=== PATIENT | female | born 1985 | race Caucasian/White ===

== ENCOUNTER 2017-02-09 09:12 | Outpatient (CLI) | payer OTHER ==
[2017-02-09 18:10] LABS: BASOPHILS % (AUTO) 0.8 %; EOSINOPHILS # (AUTO) 0.1 10^3/uL (0.0-0.7); EOSINOPHILS % (AUTO) 1.5 %; HGB - HEMOGLOBIN 14.1 g/dL (12.0-16.0); LYMPHOCYTES # (AUTO) 2.4 10^3/uL (1.5-3.5); LYMPHOCYTES % (AUTO) 43.4 %; MEAN CORPUSCULAR HEMOGLOBIN 28.1 pg (27.0-31.0); MEAN CORPUSCULAR HGB CONC 32.9 g/dL (32.0-36.0); MEAN CORPUSCULAR VOLUME 85.6 fL (81.0-99.0); MEAN PLATELET VOLUME 8.8 fL (7.9-10.8); MONOCYTES # (AUTO) 0.2 10^3/uL (0.0-1.0); MONOCYTES % (AUTO) 4.2 %; NEUTROPHILS # (AUTO) 2.7 10^3/uL (1.5-6.6); NEUTROPHILS % (AUTO) 50.1 %; NUCLEATED RED BLOOD CELLS AUTO 0.1 /100WBC; RED BLOOD COUNT 5.02 10^6/uL (4.20-5.40); RED CELL DISTRIBUTION WIDTH 12.5 % (12.0-15.0); UNCORRECTED WHITE BLOOD COUNT 5.4 x10^3/uL; WHITE BLOOD COUNT 5.4 x10^3/uL (4.8-10.8)
[2017-02-09 18:27] LABS: ALBUMIN/GLOBULIN RATIO 1.3 (1.0-2.2); BILIRUBIN,TOTAL 0.9 mg/dL (0.2-1.0); CALCIUM 9.3 mg/dL (8.5-10.3); CREATININE 0.9 mg/dL (0.4-1.0); POTASSIUM 4.2 mmol/L (3.5-5.0); TOTAL PROTEIN 7.8 g/dL (6.7-8.2)
[2017-02-09 18:59] LABS: THYROID STIMULATING HORMONE 2.01 uIU/mL (0.34-5.60)
== END 2017-02-09 09:13 | disposition home or self-care (01) ==
LOC: LAB.F 09:12
PROVIDERS: ATTEND Family Medicine
DX: R53.83 Other fatigue (principal)
CPT/HCPCS: 36415; 80053; 82306; 82607; 82746; 84439; 84443; 84481; 85025

== ENCOUNTER 2017-08-13 10:56 | Emergency (ER) | payer OTHER ==
[2017-08-13] MEDS ORDERED: METOCLOPRAMIDE 10 MG/2 ML VIAL IVP STA (11:13)
[2017-08-13] MEDS ORDERED: SODIUM CHLORIDE 0.9% 1,000 ML IV ONE (11:13)
--- NOTE | 2017-08-13 11:16 | ED Physician Documentation ---
History of Present Illness - Stated complaint Stated Complaint: DEHYDRATED/DIZZY/6WKS PREG - Chief complaint Chief Complaint: General - Additonal information Additional information: hx from pt 32 f approx 6 weeks EGA 5 days of metallic taste in her mouth like she is chewing on a dorothy with nausea and upper abd pain/burning causing ot to be diff for her to even drink water no pelvic pain ctx bleeding etc Review of Systems Constitutional: denies: Fever Throat: denies: Oral lesions / sores, Sore throat Cardiac: denies: Chest pain / pressure GI: reports: Abdominal Pain, Nausea, Vomiting. denies: Diarrhea : reports: Now EGA. denies: Discharge, Vaginal bleeding Endocrine: denies: Easy bruising / bleeding Immunocompromised: denies: Immunocompromised PD PAST MEDICAL HISTORY - Present Medications Home Medications: Ambulatory Orders Medication Instructions Recorded Confirmed Cholecalciferol (Vitamin D3) 2,000 units PO BID 08/13/17 08/13/17 [Vitamin D3] Pnv No.122/Iron/Folic Acid 122 mg PO DAILY 08/13/17 08/13/17 [ Multi Tablet] Pyridoxine HCl [Vitamin B-6] 25 mg PO Q8H PRN #10 tablet 08/13/17 buPROPion [Wellbutrin Sr] 150 mg PO DAILY 08/13/17 08/13/17 raNITIdine [Zantac] 150 mg PO BID #30 tablet 08/13/17 - Allergies Allergies/Adverse Reactions: Allergies Allergy/AdvReac Type Severity Reaction Status Date / Time oxycodone AdvReac Intermediate Unknown Verified 08/13/17 11:04 PD ED PE NORMAL - Vitals Vital signs reviewed: Yes - General General: Alert and oriented X 3 - HEENT HEENT: Pharynx benign, Dentition benign, Other (no oral lesions) - Cardiac Cardiac: RRR - Respiratory Respiratory: No respiratory distress, Clear bilaterally - Abdomen Abdomen: Soft, Non tender, Other (neg murphys) - Derm Derm: Normal color - Neuro Neuro: Alert and oriented X 3 Results - Vitals Vitals: Vital Signs - 24 hr 08/13/17 08/13/17 08/13/17 11:00 11:33 11:42 Temperature 36.4 C L 37.1 C 37.0 C Heart Rate 87 79 88 Respiratory 18 18 18 Rate Blood Pressure 147/104 H 126/79 135/80 H O2 Saturation 87 L 100 100 Oxygen O2 Source Room air - Labs Labs: Laboratory Tests 08/13/17 08/13/17 08/13/17 11:24 11:24 11:51 WBC 8.5 RBC 4.68 Hgb 13.5 Hct 39.3 MCV 84.0 MCH 28.8 MCHC 34.3 RDW 12.5 Plt Count 215 MPV 7.6 L Neut # 6.1 Lymph # 1.9 [place] # 0.4 Eos # 0.0 Baso # 0.0 Absolute Nucleated RBC 0.01 Nucleated RBC % 0.1 Sodium 135 Potassium 3.6 Chloride 100 L Carbon Dioxide 26 Anion Gap 9.0 BUN 10 Creatinine 0.7 Estimated GFR (MDRD) 98 Glucose 103 H Calcium 9.2 Total Bilirubin 0.8 AST 19 ALT 15 Alkaline Phosphatase 21 L Total Protein 7.6 Albumin 4.3 Globulin 3.3 Albumin/Globulin Ratio 1.3 Lipase 28 Urine Color DARK YELLOW Urine Clarity CLEAR Urine pH 6.5 Ur Specific [place] 1.015 Urine Protein NEGATIVE Urine Glucose (UA) NEGATIVE Urine Ketones NEGATIVE Urine Occult Blood NEGATIVE Urine Nitrite NEGATIVE Urine Bilirubin NEGATIVE Urine Urobilinogen 0.2 (NORMAL) Ur Leukocyte Esterase NEGATIVE Ur Microscopic Review NOT INDICATED Urine Culture Comments NOT INDICATED Serum Ketones NEGATIVE PD MEDICAL DECISION MAKING - ED course ED course: first VS documented are not accurate - not for this pt better after meds sx could be morning sickness GERD related to preg ddx for metallic taste in mouth is extensive and beyond scope of ER to fully work up ddx Departure - Departure Disposition: 01 Home, Self Care Clinical Impression: Dehydration, Morning sickness GERD (gastroesophageal reflux disease) Qualifiers: Esophagitis presence: esophagitis presence not specified Qualified Code(s): K21.9 - Gastro-esophageal reflux disease without esophagitis Condition: Good Instructions: ED GERD, ED Dehydration, ED Preg Morning Sickness Prescriptions: Pyridoxine HCl [Vitamin B-6] 25 mg PO Q8H PRN #10 tablet PRN Reason: vomiting in raNITIdine [Zantac] 150 mg PO BID #30 tablet Comments: Do not take your wellbutrin while taking medication for morning sickness - they interact - wellbutrin is category C in so you probably should not be taken at all while you are - please discuss with your OB i did prescribe vitamin B6 to be taken as needed for vomiting as well as zantac for acid reflux - both are safe in The metallic taste in your mouth could be from acid reflux - there are many many other disease processes that can cause this symptoms but that is beyond the scope of an ER visit to work up - please follow up with your PMD or OB if the symptoms persist
[2017-08-13 11:29] LABS: BASOPHILS % (AUTO) 0.3 %; EOSINOPHILS % (AUTO) 0.4 %; HGB - HEMOGLOBIN 13.5 g/dL (12.0-16.0); LYMPHOCYTES # (AUTO) 1.9 10^3/uL (1.5-3.5); LYMPHOCYTES % (AUTO) 22.4 %; MEAN CORPUSCULAR HEMOGLOBIN 28.8 pg (27.0-31.0); MEAN CORPUSCULAR HGB CONC 34.3 g/dL (32.0-36.0); MEAN PLATELET VOLUME 7.6 fL (7.9-10.8); MONOCYTES # (AUTO) 0.4 10^3/uL (0.0-1.0); MONOCYTES % (AUTO) 4.3 %; NEUTROPHILS # (AUTO) 6.1 10^3/uL (1.5-6.6); NEUTROPHILS % (AUTO) 72.6 %; PLT - PLATELET COUNT 215 10^3/uL (130-450); RED BLOOD COUNT 4.68 10^6/uL (4.20-5.40); RED CELL DISTRIBUTION WIDTH 12.5 % (12.0-15.0); WHITE BLOOD COUNT 8.5 x10^3/uL (4.8-10.8)
[2017-08-13] MEDS ORDERED: FAMOTIDINE 20 MG/50 ML 50 ML IV ONE (11:30)
[2017-08-13 11:44] LABS: ALBUMIN 4.3 g/dL (3.2-5.5); ALBUMIN/GLOBULIN RATIO 1.3 (1.0-2.2); ALKALINE PHOSPHATASE 21 IU/L (42-121); ALT ALANINE AMINOTRANSFERASE 15 IU/L (10-60); AST ASPARTATE AMINOTRANSFERASE 19 IU/L (10-42); BILIRUBIN,TOTAL 0.8 mg/dL (0.2-1.0); BUN - BLOOD UREA NITROGEN 10 mg/dL (6-20); CALCIUM 9.2 mg/dL (8.5-10.3); CARBON DIOXIDE - CO2 26 mmol/L (21-32); CHLORIDE 100 mmol/L (101-111); CREATININE 0.7 mg/dL (0.4-1.0); GFR - MDRD 98 (>89); GLUCOSE 103 mg/dL (70-100); LIPASE 28 U/L (22-51); SODIUM 135 mmol/L (135-145); TOTAL PROTEIN 7.6 g/dL (6.7-8.2)
[2017-08-13 11:49] LABS: KETONES, SERUM (ACETEST) NEGATIVE (NEGATIVE)
[2017-08-13 12:46] LABS: BILIRUBIN,URINE NEGATIVE (NEGATIVE); GLUCOSE, URINE (UA) NEGATIVE (NEGATIVE); KETONES,URINE (UA) NEGATIVE (NEGATIVE); LEUKOCYTE ESTERASE, URINE NEGATIVE (NEGATIVE); NITRITE,URINE NEGATIVE (NEGATIVE); OCCULT BLOOD,URINE NEGATIVE (NEGATIVE); PH,URINE 6.5 PH (5.0-7.5); PROTEIN,URINE NEGATIVE (NEGATIVE); UROBILINOGEN,URINE 0.2 (NORMAL) E.U./dL (NORMAL)
[2017-08-13 12:49] LABS: CLARITY,URINE CLEAR (CLEAR)
[2017-08-13 14:54] VITALS: BP 138/92
== END 2017-08-13 15:02 | disposition home or self-care (01) ==
LOC: ED 10:56
DX: O99.611 Diseases of the digestive system complicating pregnancy, first trimester (principal); O21.1 Hyperemesis gravidarum with metabolic disturbance; Z3A.01 Less than 8 weeks gestation of pregnancy
CPT/HCPCS: 36415; 80053; 81001; 81003; 82009; 83690; 85025; 87086; 96365; 96375; 99283; 99284

== ENCOUNTER 2017-11-21 02:45 | Outpatient (CLI) | payer OTHER ==
[2017-11-21 03:08] VITALS: BP 130/66
[2017-11-21 03:17] LABS: BILIRUBIN,URINE NEGATIVE (NEGATIVE); GLUCOSE, URINE (UA) NEGATIVE (NEGATIVE); KETONES,URINE (UA) NEGATIVE (NEGATIVE); LEUKOCYTE ESTERASE, URINE NEGATIVE (NEGATIVE); NITRITE,URINE NEGATIVE (NEGATIVE); OCCULT BLOOD,URINE NEGATIVE (NEGATIVE); PROTEIN,URINE NEGATIVE (NEGATIVE); UROBILINOGEN,URINE 0.2 (NORMAL) E.U./dL (NORMAL)
[2017-11-21 03:27] LABS: CLARITY,URINE CLEAR (CLEAR)
== END 2017-11-21 03:50 | disposition home or self-care (01) ==
LOC: WFO 02:45 → FBP 02:47 → WFO 03:50
PROVIDERS: ATTEND Obstetrics & Gynecology
DX: O26.892 Other specified pregnancy related conditions, second trimester (principal); R10.9 Unspecified abdominal pain; Z3A.21 21 weeks gestation of pregnancy
CPT/HCPCS: 81001; 81003; 87086; 99213

== ENCOUNTER 2017-11-21 03:58 | Emergency (ER) | payer OTHER ==
[2017-11-21] MEDS ORDERED: MAG HYDROX/AL HYDROX/SIMETH 30 ML UDC PO STA (04:20)
--- NOTE | 2017-11-21 05:01 | ED Physician Documentation ---
PD HPI ABD PAIN - Stated complaint Stated Complaint: ABD PX - Chief complaint Chief Complaint: Abd Pain - History obtained from History obtained from: Patient - History of Present Illness Timing - onset: How many days ago (2) Timing - details: Gradual onset, Still present Quality: Aching, Sharp Location: Epigastric Worsened by: Eating, Palpation Associated symptoms: No: Fever, Nausea, Vomiting, Diarrhea, Constipation Similar symptoms before: Work up / diagnostics, Treatment Recently seen: Not recently seen - Additional information Additional information: Patient is a 32 year old female approximately 20 weeks by dates who is presenting to the emergency department for epigastric pain. Patient originally went to OB by was cleared by them before being sent to the ER. Patient states that it has been going on for the last few days. Patient read online and was worried it might be her appendix or cancer. (patient does not have a gallbladder). Review of Systems Constitutional: denies: Fever, Chills Eyes: reports: Reviewed and negative Ears: reports: Reviewed and negative Nose: reports: Reviewed and negative Throat: reports: Reviewed and negative Cardiac: denies: Chest pain / pressure, Palpitations Respiratory: denies: Dyspnea, Cough GI: reports: Abdominal Pain, Nausea. denies: Vomiting, Constipation, Diarrhea : denies: Dysuria, Frequency, Discharge, Vaginal bleeding Musculoskeletal: denies: Back pain Neurologic: denies: Generalized weakness, Focal weakness, Numbness Immunocompromised: denies: Immunocompromised PD PAST MEDICAL HISTORY - Past Medical History Past Medical History: Yes GI: Other Other Past Medical History: Positive H. 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 - Present Medications Home Medications: Ambulatory Orders Medication Instructions Recorded Confirmed Sucralfate [Carafate] 1 gm PO BID #300 ml 11/21/17 - Allergies Allergies/Adverse Reactions: Allergies Allergy/AdvReac Type Severity Reaction Status Date / Time oxycodone AdvReac Intermediate Unknown Verified 11/21/17 04:24 - Social History Does the pt smoke?: No Smoking Status: Never smoker Does the pt drink ETOH?: Yes Does the pt have substance abuse?: No - Immunizations Immunizations are current?: Yes - POLST Patient has POLST: No PD ED PE NORMAL - Vitals Vital signs reviewed: Yes - General General: Alert and oriented X 3, Well developed/nourished - HEENT HEENT: Atraumatic, Moist mucous membranes - Neck Neck: Supple, no meningeal sign - Cardiac Cardiac: RRR, No murmur - Respiratory Respiratory: No respiratory distress - Abdomen Abdomen: Soft - Derm Derm: Normal color, Warm and dry - Extremities Extremities: No deformity - Neuro Neuro: Alert and oriented X 3, No motor deficit, Normal speech Eye Opening: Spontaneous PD ED PE EXPANDED - General General: Alert, Anxious - Abdomen Abdomen: Tender to palpation, Epigastric. No: Rebound, Guarding Results - Vitals Vitals: Vital Signs - 24 hr 11/21/17 11/21/17 04:05 05:10 Temperature 37.1 C Heart Rate 81 77 Respiratory 19 16 Rate Blood Pressure 133/82 H 112/70 O2 Saturation 100 100 Oxygen O2 Source Room air PD MEDICAL DECISION MAKING - ED course Complexity details: reviewed old records, reviewed results, re-evaluated patient , considered differential, d/w patient ED course: Patient was seen and examined at bedside. patient was anxious but well appearing. A discussion was had with the patient about possible causes of abdominal pain and and in this situation GERD was the most likely scenario. Patient was treated with maalox. Pre-eclampsia was considered but patient was not hypertensive nor did she have proteinuria . Patient had no pelvic pain or vaginal bleeding. Patient was offered labs and further diagnostics but stated that she felt better after the maalox and talking. She stated she would try the gastiris recommendations and follow up with her doctor. Patient required no further testing at this time and was stable for discharge with outpatient follow up. Departure - Departure Disposition: 01 Home, Self Care Clinical Impression: Acid reflux disease Condition: Good Instructions: Antacids Follow-Up: primary,care provider [Other] - Within 3 Days Prescriptions: Sucralfate [Carafate] 1 gm PO BID #300 ml Comments: Your symptoms today are likely secondary to GERD. It is common in . You should start with diet modifications including smaller meals, less spicey, acidic or fatty foods. You should no eat then lie down. You can try sucralfate twice a day, and maalox as needed. If your symptoms persist you should follow up with your doctor for further care and urea breath test to check for h. pylori. You should return to the emergency department for high blood pressure, abdominal pain, dizziness, new worsening or uncontrollable symptoms. Discharge Date/Time: 11/21/17 05:15
[2017-11-21 05:17] VITALS: BP 112/70
== END 2017-11-21 05:15 | disposition home or self-care (01) ==
LOC: ED 03:58
DX: O99.612 Diseases of the digestive system complicating pregnancy, second trimester (principal); K21.9 Gastro-esophageal reflux disease without esophagitis; Z3A.20 20 weeks gestation of pregnancy
CPT/HCPCS: 81003; 99213; 99283; A9270; 81001; 87086

== ENCOUNTER 2018-05-26 11:52 | Outpatient (CLI) | payer OTHER ==
[2018-05-26 17:20] LABS: BASOPHILS % (AUTO) 0.7 %; EOSINOPHILS # (AUTO) 0.3 10^3/uL (0.0-0.7); EOSINOPHILS % (AUTO) 5.9 %; HGB - HEMOGLOBIN 13.6 g/dL (12.0-16.0); LYMPHOCYTES # (AUTO) 1.9 10^3/uL (1.5-3.5); LYMPHOCYTES % (AUTO) 35.5 %; MEAN CORPUSCULAR HEMOGLOBIN 28.1 pg (27.0-31.0); MEAN CORPUSCULAR VOLUME 85.2 fL (81.0-99.0); MEAN PLATELET VOLUME 7.9 fL (7.9-10.8); MONOCYTES # (AUTO) 0.3 10^3/uL (0.0-1.0); MONOCYTES % (AUTO) 5.4 %; NEUTROPHILS # (AUTO) 2.8 10^3/uL (1.5-6.6); NEUTROPHILS % (AUTO) 52.5 %; PLT - PLATELET COUNT 208 10^3/uL (130-450); RED BLOOD COUNT 4.84 10^6/uL (4.20-5.40); RED CELL DISTRIBUTION WIDTH 12.4 % (12.0-15.0); WHITE BLOOD COUNT 5.3 x10^3/uL (4.8-10.8)
[2018-05-26 18:04] LABS: ALBUMIN 4.3 g/dL (3.2-5.5); ALBUMIN/GLOBULIN RATIO 1.3 (1.0-2.2); BILIRUBIN,TOTAL 0.6 mg/dL (0.2-1.0); CALCIUM 9.3 mg/dL (8.5-10.3); CREATININE 0.9 mg/dL (0.4-1.0); TOTAL PROTEIN 7.5 g/dL (6.7-8.2)
== END 2018-05-26 11:53 | disposition home or self-care (01) ==
LOC: LAB.F 11:52
PROVIDERS: ATTEND Family Medicine
DX: R10.13 Epigastric pain (principal)
CPT/HCPCS: 36415; 80053; 85025

== ENCOUNTER 2018-05-27 12:11 | Emergency (ER) | payer OTHER ==
[2018-05-27 12:59] LABS: GLUCOSE, URINE (UA) NEGATIVE (NEGATIVE); KETONES,URINE (UA) 40 mg/dL (NEGATIVE); LEUKOCYTE ESTERASE, URINE NEGATIVE (NEGATIVE); NITRITE,URINE NEGATIVE (NEGATIVE); OCCULT BLOOD,URINE TRACE-INTA (NEGATIVE); PROTEIN,URINE NEGATIVE (NEGATIVE); UROBILINOGEN,URINE 0.2 (NORMAL) E.U./dL (NORMAL)
[2018-05-27 13:06] LABS: BILIRUBIN,URINE NEGATIVE (NEGATIVE); CLARITY,URINE CLEAR (CLEAR); ICTOTEST,URINE NEGATIVE
[2018-05-27 13:15] LABS: HCG UR QUAL NEGATIVE
--- NOTE | 2018-05-27 14:27 | ED Physician Documentation ---
PD HPI ABD PAIN - Stated complaint Stated Complaint: ABD PX - Chief complaint Chief Complaint: Abd Pain - History obtained from History obtained from: Patient - History of Present Illness Timing - onset: How many days ago (several days of uper abd pain, worse with eating.) Timing - duration: Days Timing - details: Gradual onset, Still present, Intermittant Quality: Cramping, Aching, Pain Location: Epigastric Radiation: Upper back Improved by: No: Eating Worsened by: Eating Associated symptoms: Nausea, Loss of appetite. No: Fever, Vomiting, Diarrhea, Melena, Weight loss Similar symptoms before: Diagnosis (h.pylori related ulcer years ago. no recent problems. Prior CCY. No history of pancreatitis.) Recently seen: Clinic (she is 8 weeks post .) Review of Systems Constitutional: denies: Fever, Chills, Myalgias Nose: denies: Rhinorrhea / runny nose, Congestion Throat: denies: Sore throat Respiratory: denies: Cough GI: reports: Abdominal Pain, Nausea. denies: Abdominal Swelling, Vomiting, Constipation, Diarrhea, Bloody / black stool : denies: Dysuria, Frequency Skin: denies: Rash Musculoskeletal: reports: Back pain. denies: Neck pain Neurologic: reports: Generalized weakness. 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 - Present Medications Home Medications: Ambulatory Orders Medication Instructions Recorded Confirmed Sucralfate [Carafate] 1 gm PO BID #300 ml 11/21/17 HYDROcod/ACETAM 5/325 [[place] 5/325] 1 tab PO Q6H PRN #15 tablet 05/27/18 Lidocaine Viscous 2% [Xylocaine 5 ml PO Q4H PRN #1 bottle 05/27/18 Viscous 2%] Pantoprazole [Protonix] 05/27/18 05/27/18 Sucralfate 1 gm PO QID #40 tablet 05/27/18 - Allergies Allergies/Adverse Reactions: Allergies Allergy/AdvReac Type Severity Reaction Status Date / Time oxycodone AdvReac Intermediate Unknown Verified 11/21/17 04:24 - Social History Does the pt smoke?: No Smoking Status: Never smoker Does the pt drink ETOH?: Yes Does the pt have substance abuse?: No - Immunizations Immunizations are current?: Yes - POLST Patient has POLST: No PD ED PE NORMAL - Vitals Vital signs reviewed: Yes - General General: Alert and oriented X 3, Well developed/nourished, Other (anxious, and does seem in pain from upper abd. ) - HEENT HEENT: Ears normal, Pharynx benign - Neck Neck: Supple, no meningeal sign, No adenopathy - Cardiac Cardiac: RRR, No murmur - Respiratory Respiratory: Clear bilaterally - Abdomen Abdomen: Normal bowel sounds, Soft, Non distended, No organomegaly, Other (tender epigastric area with local guarding. No rebound. Lower abd c-sec wound well healing. ) - Female Female : Deferred - Rectal Rectal: Deferred - Back Back: No CVA TTP - Derm Derm: Normal color, Warm and dry - Extremities Extremities: No tenderness to palpate, Normal ROM s pain, No edema, No calf tenderness / cord - Neuro Neuro: Alert and oriented X 3, No motor deficit, Normal speech - Psych Psych: No: Normal affect (anxious and concerned/tearful about concern for cancer or other tumors. ) Results - Vitals Vitals: Vital Signs - 24 hr 05/27/18 05/27/18 05/27/18 12:16 16:26 18:23 Temperature 36.4 C L Heart Rate 88 84 75 Respiratory 20 14 12 Rate Blood Pressure 151/91 H 148/88 H 132/78 H O2 Saturation 100 100 98 Oxygen O2 Source Room air - Labs Labs: Laboratory Tests 05/27/18 05/27/18 12:25 12:25 Urine Color DARK YELLOW Urine Clarity CLEAR Urine pH 6.0 Ur Specific [place] >=1.030 H >=1.030 H Urine Protein NEGATIVE Urine Glucose (UA) NEGATIVE Urine Ketones 40 H Urine Occult Blood TRACE-INTA Urine Nitrite NEGATIVE Urine Bilirubin NEGATIVE Urine Urobilinogen 0.2 (NORMAL) Ur Leukocyte Esterase NEGATIVE Ur Microscopic Review NOT INDICATED Urine Culture Comments NOT INDICATED Urine HCG, Qual NEGATIVE - Rads (name of study) RUQ U/S Radiology: Prelim report reviewed (CBD is normal. No free fluid. Liver mass noted.) abd CT Radiology: Prelim report reviewed (No acute findings. Liver mass noted with hypodensity and irregular edging c/w hemangioma. ) PD MEDICAL DECISION MAKING - ED course Complexity details: re-evaluated patient (She was feeling improved with GI cocktail. Her common bile duct appeared normal on ultrasound. There was a question of a mass in the liver on ultrasound and a CT was done which showed a likely hemangioma. There is no indication of neoplastic mass. Her blood tests are normal. At this point I would presume a gastritis or ulcer in treated that way. She had been prescribed pantoprazole and we would add sucralfate, viscous lidocaine, Zofran and pain medicine. She was feeling improved at the time of discharge.), considered differential (Sounds likely to be gastritis or ulcer. She has had a previous gallbladder resection. We will check labs.), d/w patient Departure - Departure Disposition: Home, Self Care Clinical Impression: Upper abdominal pain, Hemangioma of liver Gastritis, acute Qualifiers: Gastritis type: unspecified gastritis Gastritis bleeding: without bleeding Qualified Code(s): K29.00 - Acute gastritis without bleeding Condition: Stable Record reviewed to determine appropriate education?: Yes Instructions: ED PUD Vs Gastritis Follow-Up: Marissa Medrano PA-C [Primary Care Provider] - Prescriptions: HYDROcod/ACETAM 5/325 [[place] 5/325] 1 tab PO Q6H PRN #15 tablet PRN Reason: Pain Lidocaine Viscous 2% [Xylocaine Viscous 2%] 5 ml PO Q4H PRN #1 bottle PRN Reason: Pain Sucralfate 1 gm PO QID #40 tablet Comments: The CT scan shows the liver mass to be apparently a hemangioma which is a collection of blood vessels in a localized area. This is a benign finding. There is no signs of cancer or tumors. I believe your stomach pain is related to an ulcer or gastritis. Continue the pantoprazole previously prescribed. Use sucralfate 3 or 4 times a day as well to coat the stomach. Add lidocaine with antacid periodically if needed for stomach pain and can also use Tylenol or hydrocodone if needed for pain. Follow-up with your primary care next week, call for an appointment. With your follow-up, also bring a stool sample in a specimen cup so they can send it to the lab and test for recurrent H. pylori. Discharge Date/Time: 05/27/18 18:24
[2018-05-27] MEDS ORDERED: ACETAMINOPHEN 325 MG TABLET PO STA (14:47)
[2018-05-27] MEDS ORDERED: LIDOCAINE VISCOUS 2% 15 ML UDC MM STA (14:47)
[2018-05-27] MEDS ORDERED: MAG HYDROX/AL HYDROX/SIMETH 30 ML UDC PO STA (14:47)
--- NOTE | 2018-05-27 16:42 | Ultrasound Report ---
Reason: upper abd pain; s/p CCY. eval CBD Procedure Date: 05/27/2018 Accession Number: [id number] / [id number] Procedure: US - Abdomen Limited CPT Code: FULL RESULT: EXAM: ABDOMEN ULTRASOUND LIMITED, RUQ EXAM DATE: 05/27/2018 03:43 PM. CLINICAL HISTORY: Upper abd pain; s/p CCY. Eval CBD. COMPARISON: None available. TECHNIQUE: Real-time scanning was performed with static images obtained. FINDINGS: Liver: There is a focal subcapsular mass in the left hepatic lobe that is mildly hyperechoic compared to the normal liver parenchyma. This mass measures 3.5 x 3.8 x 2.8 cm. No significant internal vascularity on color Doppler. 13.7 cm. Main portal vein flow: Hepatopetal. Gallbladder: Surgically absent. Biliary System: CBD measures 5 mm. No intrahepatic or extrahepatic ductal dilatation. Other: The right kidney is unremarkable. IMPRESSION: Focal subcapsular mass in the left hepatic lobe, which is hyperechoic relative to the normal liver parenchyma. Differential considerations include focal nodular hyperplasia, adenoma, or less likely malignancy. This can be further evaluated with liver protocol contrast-enhanced Eovist MRI. [facility]
[2018-05-27] MEDS ORDERED: IOPAMIDOL-300 100 ML VIAL ONE (17:11)
[2018-05-27] MEDS ORDERED: IOPAMIDOL-300 100 ML VIAL IVP ONE (17:32)
--- NOTE | 2018-05-27 17:53 | CT Report ---
Reason: liver mass seen on US Procedure Date: 05/27/2018 Accession Number: [id number] / [id number] Procedure: CT - Abdomen/Pelvis W/ CPT Code: FULL RESULT: EXAM: CT ABDOMEN AND PELVIS EXAM DATE: 05/27/2018 05:28 PM. CLINICAL HISTORY: Liver mass seen on US. COMPARISONS: None. TECHNIQUE: Routine helical CT imaging was performed through the abdomen and pelvis. IV contrast: ISOVUE 300 100mL. Enteric contrast: No. Reconstructions: Coronal and sagittal. In accordance with CT protocol optimization, one or more of the following dose reduction techniques were utilized for this exam: automated exposure control, adjustment of mA and/or KV based on patient size, or use of iterative reconstructive technique. FINDINGS: Lung Bases: Unremarkable. Liver: Again seen is the subcapsular mass in the left hepatic lobe, which measures 2.9 x [address] This mass is hypodense relative to the adjacent liver parenchyma and may demonstrate nodular discontinuous peripheral enhancement. Two additional hypodense lesions are seen in the left hepatic dome with the largest measuring 9-10 mm, which may represent cysts or hemangiomas. No intrahepatic bile duct dilation. Gallbladder/Bile Ducts: The gallbladder is surgically absent. Spleen: Normal. Pancreas: Normal. Adrenal Glands: Normal. Kidneys: No hydronephrosis. Nonobstructing 4 mm stone in the lower pole of the left kidney. Symmetric renal perfusion. Peritoneal Cavity/Bowel: Nonobstructive bowel gas pattern. Small to moderate volume stool. The appendix is normal. No free air or free fluid. Pelvic Organs: Normal. The bladder and visualized pelvic organs are within normal limits. Vasculature: No aneurysms or other significant abnormality. Bones: No significant abnormality. Other: None. IMPRESSION: Redemonstrated subcapsular mass in the left hepatic lobe. Imaging features on this single phase CT suggest a hemangioma given peripheral nodular discontinuous enhancement. However, given that the patient was focally tender at this location, further evaluation with outpatient Eovist liver MRI is still recommended for definitive characterization. Nonobstructing left renal nephrolithiasis. RADIA The above findings were discussed with Cancel Call Report Please by Dr. Papo Alfredo at 17:51 hrs on 05/27/18.
[2018-05-27 18:24] VITALS: BP 132/78
== END 2018-05-27 18:24 | disposition home or self-care (01) ==
LOC: ED 12:11
DX: K29.00 Acute gastritis without bleeding (principal); D18.09 Hemangioma of other sites
CPT/HCPCS: 74177; 76705; 81001; 81003; 81025; 87086; 87338; 99283

== ENCOUNTER 2018-05-27 23:35 | Emergency (ER) | payer OTHER ==
[2018-05-27 23:48] VITALS: BP 131/76
--- NOTE | 2018-05-28 00:38 | ED Physician Documentation ---
History of Present Illness - Stated complaint Stated Complaint: UPPER LT BACK PX - Chief complaint Chief Complaint: General - History obtained from History obtained from: Patient - History of Present Illness Timing: Today Pain level now: 3 Improved by: nothing Worsened by: no exacerbating factors - Additonal information Additional information: T+R earlier this afternoon from this ED after w/u for abd. pain; testing included abd. US and abd. CT, with nondiagnostic results. seen by PMD yesterday and had outpatient blood work that also yielded unrevealing results. she returns due to the pain now radiating to left chest, left shoulder, and left side of neck as well as to mid/lower back. she did not take the lidocaine nor hydrocodone, as she did not want to mask the pain. she expresses concern regarding family h/o cardiac problems Review of Systems Constitutional: reports: Reviewed and negative Cardiac: reports: Chest pain / pressure. denies: Palpitations, Pedal edema Respiratory: reports: Reviewed and negative GI: reports: Abdominal Pain. 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: No Smoking Status: Never smoker Does the pt drink ETOH?: Yes Does the pt have substance abuse?: No - Immunizations Immunizations are current?: Yes - POLST Patient has POLST: No PD ED PE NORMAL - Vitals Vital signs reviewed: Yes - General General: Alert and oriented X 3, No acute distress, Well developed/nourished - HEENT HEENT: Moist mucous membranes - Neck Neck: Supple, no meningeal sign - Cardiac Cardiac: RRR, No murmur, No gallop, No rub - Respiratory Respiratory: No respiratory distress, Clear bilaterally - Abdomen Abdomen: Soft, Non tender - Extremities Extremities: No edema Results - Vitals Vitals: Vital Signs - 24 hr 05/27/18 23:42 Temperature 36.5 C Heart Rate 78 Respiratory 16 Rate Blood Pressure 131/76 H O2 Saturation 100 Oxygen O2 Source Room air - EKG (time done) No standard instances Rate: Rate (enter#) (78) Rhythm: NSR [place]: Normal Intervals: Normal NC QRS: Normal Ischemia: Normal ST segments - Rads (name of study) chest xray Radiology: Prelim report reviewed, See rad report PD MEDICAL DECISION MAKING - ED course Complexity details: reviewed results, re-evaluated patient, considered differential, d/w patient Departure - Departure Disposition: 01 Home, Self Care Clinical Impression: Gastritis, acute, Back pain Condition: Good Instructions: ED PUD Vs Gastritis Follow-Up: Marissa Medrano PA-C [Primary Care Provider] - Discharge Date/Time: 05/28/18 03:45
--- NOTE | 2018-05-28 01:37 | XRAY Report ---
Reason: chest pain Procedure Date: 05/28/2018 Accession Number: [id number] / [id number] Procedure: XR - Chest 2 View X-Ray CPT Code: 30149 FULL RESULT: EXAM: CHEST RADIOGRAPHY EXAM DATE: 05/28/2018 01:12 AM. CLINICAL HISTORY: Chest pain. COMPARISON: None. TECHNIQUE: 2 views. FINDINGS: Lungs/Pleura: No focal opacities evident. No pleural effusion. No pneumothorax. Normal volumes. Mediastinum: Heart and mediastinal contours are unremarkable. Other: None. IMPRESSION: Normal 2-view chest radiography. [facility]
[2018-05-28] MEDS ORDERED: LIDOCAINE VISCOUS 2% 15 ML UDC MM STA (02:32)
[2018-05-28] MEDS ORDERED: MAG HYDROX/AL HYDROX/SIMETH 30 ML UDC PO STA (02:32)
== END 2018-05-28 03:45 | disposition home or self-care (01) ==
LOC: ED 23:35
DX: K29.70 Gastritis, unspecified, without bleeding (principal); M54.9 Dorsalgia, unspecified; D18.09 Hemangioma of other sites; K29.00 Acute gastritis without bleeding
CPT/HCPCS: 36415; 71046; 74177; 76705; 81003; 81025; 84484; 93005; 99283; A9270; Q9967

== ENCOUNTER 2018-06-16 08:29 | Outpatient (CLI) | payer OTHER ==
[2018-06-16] MEDS ORDERED: GADOBUTROL 7.5 MMOL/7.5 ML VIAL ONE (08:38)
[2018-06-16] MEDS ORDERED: GADOBUTROL 7.5 MMOL/7.5 ML VIAL IVP ONE (10:21)
--- NOTE | 2018-06-16 16:25 | MRI Report ---
Reason: LIVER LESIONS SEEN ON CT US Procedure Date: 06/16/2018 Accession Number: [id number] / [id number] Procedure: MRI - Abdomen W/WO CPT Code: FULL RESULT: EXAM: MR ABDOMEN WITH AND WITHOUT CONTRAST EXAM DATE: 06/16/2018 10:14 AM. CLINICAL HISTORY: Liver lesions seen on CT, ultrasound. COMPARISON: ABDOMEN/PELVIS W/ 05/27/2018 5:30 PM. TECHNIQUE: Multiplanar breath-hold T1, T2, and DWI sequences obtained through the liver and abdomen on an MR scanner before and after administration of 7.5 mL Gadavist intravenous contrast. Multiphase postcontrast sequences obtained through the liver. FINDINGS: Lung Bases: The lung bases are clear. Liver: There is a 3.3 x 2.7 cm mass within segment 3 of the left hepatic lobe. The mass is hypointense on T1-weighted sequences, hyperintense on T2 weighted sequences and demonstrates nodular peripheral enhancement postcontrast with gradual centripetal filling. A 1.1 cm cyst is also seen at the junction of segments 2 and 4A. The liver otherwise demonstrates uniform signal with no significant fatty infiltration. No suspicious liver lesion seen. Gallbladder/Bile Duct: The gallbladder has been removed. There is no bile duct dilatation. Pancreas: The pancreas appears normal with no mass. Spleen: The spleen appears normal. Kidneys and Adrenals: The kidneys appear normal with no mass or hydronephrosis. There are no cysts in the kidneys. The adrenals appear normal. Bowel: The small bowel and colon appear normal with no inflammation or obstruction. Retroperitoneum: The retroperitoneal structures appear normal with no mass or lymphadenopathy. IMPRESSION: 1. Left hepatic lobe 3.3 x 2.7 cm hemangioma corresponding to CT findings. 2. Status post cholecystectomy. Otherwise unremarkable abdomen MRI. [facility]
== END 2018-06-16 08:30 | disposition home or self-care (01) ==
LOC: DI 08:29
PROVIDERS: ATTEND Surgery
DX: D18.03 Hemangioma of intra-abdominal structures (principal); Z90.49 Acquired absence of other specified parts of digestive tract
CPT/HCPCS: 74183; A9585

== ENCOUNTER 2018-06-27 01:19 | Emergency (ER) | payer OTHER ==
--- NOTE | 2018-06-27 01:45 | ED Physician Documentation ---
PD HPI FEMALE - Stated complaint Stated Complaint: FEMALE - Chief complaint Chief Complaint: UTI - History obtained from History obtained from: Patient - History of Present Illness Timing - onset: How many days ago (6) Timing - details: Still present Associated symptoms: Dysuria, Urinary frequency, Hematuria - Additional information Additional information: The patient is a 32-year-old female who presents with hematuria and dysuria. Her symptoms started 6 days ago, but became worse today. She reports slight nausea, without vomiting. She denies fever or back pain. She reports history of similar symptoms with urinary tract infections in the past, but never with hematuria. Her last menstrual period was 1 year ago, before getting . She is 3 months status post . Review of Systems Constitutional: denies: Fever Nose: denies: Congestion Respiratory: denies: Dyspnea GI: reports: Nausea. 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 - Present Medications Home Medications: Ambulatory Orders Medication Instructions Recorded Confirmed Sucralfate [Carafate] 1 gm PO BID #300 ml 11/21/17 HYDROcod/ACETAM 5/325 [[place] 5/325] 1 tab PO Q6H PRN #15 tablet 05/27/18 Lidocaine Viscous 2% [Xylocaine 5 ml PO Q4H PRN #1 bottle 05/27/18 Viscous 2%] Pantoprazole [Protonix] 05/27/18 05/27/18 Sucralfate 1 gm PO QID #40 tablet 05/27/18 - Allergies Allergies/Adverse Reactions: Allergies Allergy/AdvReac Type Severity Reaction Status Date / Time oxycodone AdvReac Intermediate Unknown Verified 06/27/18 01:32 - Social History Does the pt smoke?: No Smoking Status: Never smoker Does the pt drink ETOH?: Yes Does the pt have substance abuse?: No - Immunizations Immunizations are current?: Yes - POLST Patient has POLST: No PD ED PE NORMAL - Vitals Vital signs reviewed: Yes (Initially hypertensive.) - General General: Alert and oriented X 3, Well developed/nourished - HEENT HEENT: Atraumatic - Cardiac Cardiac: RRR - Respiratory Respiratory: No respiratory distress, Clear bilaterally - Abdomen Abdomen: Soft, Non tender - Back Back: No CVA TTP - Derm Derm: No rash - Neuro Neuro: Alert and oriented X 3, Normal speech Results - Vitals Vitals: Vital Signs - 24 hr 06/27/18 06/27/18 01:29 03:23 Temperature 36.8 C Heart Rate 74 64 Respiratory 16 19 Rate Blood Pressure 147/97 H 137/85 H O2 Saturation 100 100 Oxygen O2 Source Room air - Labs Labs: Laboratory Tests 06/27/18 01:43 Urine Color YELLOW Urine Clarity SL. CLOUDY Urine pH 6.0 Ur Specific [place] >=1.030 H Urine Protein TRACE Urine Glucose (UA) NEGATIVE Urine Ketones NEGATIVE Urine Occult Blood LARGE H Urine Nitrite NEGATIVE Urine Bilirubin NEGATIVE Urine Urobilinogen 0.2 (NORMAL) Ur Leukocyte Esterase NEGATIVE Urine RBC TNTC H Urine WBC 0-3 Ur Squamous Epith Cells NONE SEEN Urine Bacteria None Seen Ur Microscopic Review INDICATED Urine Culture Comments NOT INDICATED Urine HCG, Qual NEGATIVE - Rads (name of study) CT abd/pelvis w/o Radiology: Prelim report reviewed, EMP read contemporaneously, See rad report (No urinary tract stones or hydronephrosis. Status post cholecystectomy.) PD MEDICAL DECISION MAKING - ED course Complexity details: reviewed old records, reviewed results, re-evaluated patient, considered differential, d/w patient ED course: The underlying cause of the patient's hematuria is most likely menstrual bleeding rather than actual hematuria. Her urinalysis does not suggest urinary tract infection, and CT scan of her abdomen and pelvis reveals no evidence of ureteral stone or hydronephrosis. Her test is negative. I discussed with her that if hematuria persists, and it is not menstrual bleeding, she may need to follow-up with a urologist for cystoscopy. In addition to the above, the patient complains of a bitter taste in her mouth, which is most likely a result of gastroesophageal reflux. She currently is treated with Protonix. I advised her to use liquid antacid, such as Maalox or Mylanta if she develops recurrent symptoms. I discussed with her potentially worrisome signs or symptoms that should prompt reevaluation in the emergency department. Departure - Departure Disposition: 01 Home, Self Care Clinical Impression: Hematuria Qualifiers: Hematuria type: unspecified type Qualified Code(s): R31.9 - Hematuria, unspecified GERD (gastroesophageal reflux disease) Qualifiers: Esophagitis presence: esophagitis presence not specified Qualified Code(s): K21.9 - Gastro-esophageal reflux disease without esophagitis Condition: Stable Instructions: ED GERD, ED Hematuria Follow-Up: Marissa Medrano PA-C [Primary Care Provider] - Comments: Drink plenty of fluids. He can use Tylenol if needed for discomfort. Drink liquid antacid, such as Maalox or Mylanta, if you develop recurrent reflux symptoms. Follow-up with your primary physician within 1-2 weeks. Call to schedule appointment. Return to the emergency department if you develop increasing pain, persistent vomiting, increasing bleeding, or otherwise worsening symptoms. Discharge Date/Time: 06/27/18 03:24
[2018-06-27 01:49] LABS: BILIRUBIN,URINE NEGATIVE (NEGATIVE); GLUCOSE, URINE (UA) NEGATIVE (NEGATIVE); KETONES,URINE (UA) NEGATIVE (NEGATIVE); LEUKOCYTE ESTERASE, URINE NEGATIVE (NEGATIVE); NITRITE,URINE NEGATIVE (NEGATIVE); OCCULT BLOOD,URINE LARGE (NEGATIVE); PROTEIN,URINE TRACE mg/dL (NEGATIVE); UROBILINOGEN,URINE 0.2 (NORMAL) E.U./dL (NORMAL)
[2018-06-27 01:50] LABS: CLARITY,URINE SL. CLOUDY (CLEAR)
[2018-06-27 01:51] LABS: HCG UR QUAL NEGATIVE
[2018-06-27 01:54] LABS: BACTERIA,URINE None Seen /HPF (None Seen); RBC,URINE TNTC /HPF (0-5); SQUAMOUS EPITHELIAL CELL,UR NONE SEEN (<= Few)
--- NOTE | 2018-06-27 03:03 | CT Report ---
Reason: right flank pain and hematuria Procedure Date: 06/27/2018 Accession Number: [id number] / [id number] Procedure: CT - Abdomen/Pelvis W/O CPT Code: FULL RESULT: EXAM: CT ABDOMEN AND PELVIS (CT KUB) EXAM DATE: 06/27/2018 02:37 AM. CLINICAL HISTORY: Right flank pain and hematuria. COMPARISONS: ABDOMEN/PELVIS W/ 05/27/2018 5:30 PM ABDOMEN W/WO 06/16/2018 9:19 AM. TECHNIQUE: Routine axial helical CT imaging was performed through the abdomen and pelvis without IV contrast. Reconstructions: Coronal and sagittal. In accordance with CT protocol optimization, one or more of the following dose reduction techniques were utilized for this exam: automated exposure control, adjustment of mA and/or KV based on patient size, or use of iterative reconstructive technique. FINDINGS: Lung Bases: Unremarkable. Right Kidney/Ureter: No stones, hydronephrosis, or hydroureter. No perinephric fat stranding. Left Kidney/Ureter: No stones, hydronephrosis, or hydroureter. No perinephric fat stranding. Other Solid Organs: Noncontrast images of the solid organs are grossly unremarkable with exception of the known 3 cm left liver hemangioma. Gallbladder/Bile Ducts: Unremarkable post cholecystectomy. Peritoneal Cavity: No free fluid, free air or miguel adenopathy. Bowel is grossly unremarkable. Pelvic Organs: No bladder stones or wall thickening. Noncontrast images of the visualized pelvic organs are unremarkable. Vasculature: Unremarkable. Other: None. IMPRESSION: 1. No urinary tract stones or obstruction. 2. Post cholecystectomy. [facility]
[2018-06-27 03:23] VITALS: BP 137/85
== END 2018-06-27 03:24 | disposition home or self-care (01) ==
LOC: ED 01:19
DX: R31.9 Hematuria, unspecified (principal); K21.9 Gastro-esophageal reflux disease without esophagitis
CPT/HCPCS: 74176; 81001; 81003; 81025; 87086; 99283

== ENCOUNTER 2018-07-28 10:12 | Emergency (ER) | payer OTHER ==
[2018-07-28] MEDS ORDERED: SODIUM CHLORIDE 0.9% 1,000 ML IV ONE (10:31)
[2018-07-28] MEDS ORDERED: fentaNYL 100 MCG/2 ML VIAL IVP STA (10:31)
[2018-07-28] MEDS ORDERED: ONDANSETRON 4 MG/2 ML VIAL IVP STA (10:32)
--- NOTE | 2018-07-28 10:52 | ED Physician Documentation ---
PD HPI BACK PAIN - Stated complaint Stated Complaint: L LOWER BACK PX - Chief complaint Chief Complaint: Abd Pain - History obtained from History obtained from: Patient - History of Present Illness Timing - onset: How many minutes ago (90) Timing - details: Abrupt onset Location: Mid, Left Quality: Pain Similar symptoms before: Has not had sx before - Additional information Additional information: The patient is a 33-year-old female who presents with left flank pain radiating to her left groin. The pain started suddenly about 1-1/2 hours prior to arrival. She reports associated nausea, without vomiting. She reports urgency of urination, without dysuria. She denies fever. Her last menstrual period was 2 weeks ago. She denies history of similar symptoms in the past. Review of Systems Constitutional: denies: Fever Nose: denies: Congestion Throat: denies: Sore throat Cardiac: denies: Chest pain / pressure Respiratory: denies: Dyspnea, Cough GI: reports: Abdominal Pain (left flank), Nausea. denies: Vomiting : reports: LMP (2 weeks ago.). 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 - Present Medications Home Medications: Ambulatory Orders Medication Instructions Recorded Confirmed Ferrous Gluconate [Iron] 07/28/18 07/28/18 Hydrocodone/Acetaminophen 1 - 2 each PO Q6H PRN #14 tablet 07/28/18 [Hydrocodon-Acetaminophen 5-325] Magnesium 07/28/18 [id number]/Omega3/Dha/Fish Oil 07/28/18 07/28/18 [ Gummies] Promethazine [Phenergan] 25 mg PO Q6H PRN #10 tab 07/28/18 Tamsulosin [Flomax] 0.4 mg PO DAILY #7 capsule 07/28/18 buPROPion [Wellbutrin Xl] 07/28/18 - Allergies Allergies/Adverse Reactions: Allergies Allergy/AdvReac Type Severity Reaction Status Date / Time oxycodone AdvReac Intermediate Unknown Verified 07/28/18 10:21 - Social History Does the pt smoke?: No Smoking Status: Never smoker Does the pt drink ETOH?: Yes Does the pt have substance abuse?: No - Immunizations Immunizations are current?: Yes - POLST Patient has POLST: No PD ED PE NORMAL - Vitals Vital signs reviewed: Yes (Borderline hypertension initially.) - General General: Alert and oriented X 3, Well developed/nourished - HEENT HEENT: Atraumatic, Pharynx benign - Neck Neck: No adenopathy, No JVD - Cardiac Cardiac: RRR, No murmur - Respiratory Respiratory: No respiratory distress, Clear bilaterally - Abdomen Abdomen: Soft, Non tender - Back Back: No spinal TTP, Other (Left CVA tenderness to percussion.) - Derm Derm: No rash - Extremities Extremities: No edema, No calf tenderness / cord - Neuro Neuro: Alert and oriented X 3, No motor deficit, No sensory deficit Results - Vitals Vitals: Vital Signs - 24 hr 07/28/18 07/28/18 10:20 11:10 Temperature 36.6 C Heart Rate 83 69 Respiratory 40 H 25 H Rate Blood Pressure 130/92 H O2 Saturation 96 100 Oxygen O2 Source Room air - Labs Labs: Laboratory Tests 07/28/18 10:30 Urine Color YELLOW Urine Clarity SL. CLOUDY Urine pH 6.0 Ur Specific [place] >=1.030 H Urine Protein 100 H Urine Glucose (UA) NEGATIVE Urine Ketones NEGATIVE Urine Occult Blood LARGE H Urine Nitrite NEGATIVE Urine Bilirubin NEGATIVE Urine Urobilinogen 0.2 (NORMAL) Ur Leukocyte Esterase NEGATIVE Urine RBC TNTC H Urine WBC 0-3 Ur Squamous Epith Cells MANY Squamous H Amorphous Sediment Few Urine Bacteria Few Urine Mucus Few Strands Ur Microscopic Review INDICATED Urine Culture Comments NOT INDICATED Urine HCG, Qual NEGATIVE - Rads (name of study) CT abd/pelvis w/o Radiology: Prelim report reviewed, EMP read contemporaneously, See rad report (Minimally obstructing 3 x 5 mm left ureterovesical junction stone) PD MEDICAL DECISION MAKING - ED course Complexity details: reviewed old records, reviewed results, re-evaluated patient, considered differential, d/w patient ED course: The patient's presentation is most consistent with left distal ureteral stone with renal colic, with a 5 x 3 mm minimally obstructing stone seen at the left ureterovesical junction on CT scan. She has microscopic hematuria, without evidence of urinary tract infection on urinalysis. Treatment in the emergency department included administration of normal saline 1 L IV, ketorolac 30 mg IV, fentanyl 75 mcg IV, and Zofran 4 mg IV. This relieved the patient's symptoms. She is being discharged with prescriptions for Phenergan and for Percocet, 15 tablets. I discussed with her the diagnosis, expected course of illness, outpatient follow-up, as well as potentially worrisome signs or symptoms that should prompt reevaluation in the emergency department. Departure - Departure Disposition: 01 Home, Self Care Clinical Impression: Renal colic, Calculus of distal left ureter Condition: Stable Instructions: ED Stone Renal W Colic Follow-Up: Marissa Medrano PA-C [Primary Care Provider] - Prescriptions: Hydrocodone/Acetaminophen [Hydrocodon-Acetaminophen 5-325] 1 - 2 each PO Q6H PRN #14 tablet PRN Reason: pain Promethazine [Phenergan] 25 mg PO Q6H PRN #10 tab PRN Reason: Nausea / Vomiting Tamsulosin [Flomax] 0.4 mg PO DAILY #7 capsule Comments: Drink plenty of fluids. Take Flomax daily as prescribed. You can use Phenergan as prescribed as needed for nausea. You can use Vicodin as prescribed if needed for pain. Follow-up with your primary physician within 1 week. Call to schedule an appointment. Return to the emergency department if you develop increasing abdominal pain, persistent vomiting, fever, or otherwise worsening symptoms.
[2018-07-28 10:57] LABS: BILIRUBIN,URINE NEGATIVE (NEGATIVE); GLUCOSE, URINE (UA) NEGATIVE (NEGATIVE); KETONES,URINE (UA) NEGATIVE (NEGATIVE); LEUKOCYTE ESTERASE, URINE NEGATIVE (NEGATIVE); NITRITE,URINE NEGATIVE (NEGATIVE); OCCULT BLOOD,URINE LARGE (NEGATIVE); PROTEIN,URINE 100 mg/dL (NEGATIVE); UROBILINOGEN,URINE 0.2 (NORMAL) E.U./dL (NORMAL)
[2018-07-28 11:03] LABS: CLARITY,URINE SL. CLOUDY (CLEAR); HCG UR QUAL NEGATIVE
[2018-07-28 11:25] LABS: AMORPHOUS SEDIMENT,UR Few /LPF; BACTERIA,URINE Few /HPF (None Seen); MUCUS,URINE Few Strands; RBC,URINE TNTC /HPF (0-5); SQUAMOUS EPITHELIAL CELL,UR MANY Squamous (<= Few)
--- NOTE | 2018-07-28 11:49 | CT Report ---
Reason: left flank pain Procedure Date: 07/28/2018 Accession Number: [id number] / [id number] Procedure: CT - Abdomen/Pelvis W/O CPT Code: FULL RESULT: EXAM: CT ABDOMEN AND PELVIS (CT KUB) EXAM DATE: 07/28/2018 11:20 AM. CLINICAL HISTORY: Left flank pain. COMPARISONS: ABDOMEN/PELVIS W/O 06/27/2018 2:37 AM ABDOMEN W/WO 06/16/2018 9:19 AM. TECHNIQUE: Routine axial helical CT imaging was performed through the abdomen and pelvis without IV contrast. Reconstructions: Coronal and sagittal. In accordance with CT protocol optimization, one or more of the following dose reduction techniques were utilized for this exam: automated exposure control, adjustment of mA and/or KV based on patient size, or use of iterative reconstructive technique. FINDINGS: Lung Bases: Unremarkable. Right Kidney/Ureter: No stones, hydronephrosis, or hydroureter. No perinephric fat stranding. Left Kidney/Ureter: There is a 5 x 3 mm stone at the left vesicoureteral junction. Minimal dilatation of the ureter and renal pelvis noted. No additional calculi. Other Solid Organs: Slightly hypodense 3.5 cm left hepatic lobe mass consistent with known hemangioma. The unenhanced spleen, pancreas and adrenal glands are unremarkable. Gallbladder/Bile Ducts: The gallbladder has been removed. There is no bile duct dilatation. Peritoneal Cavity: No free fluid, free air or miguel adenopathy. Bowel is grossly unremarkable. Pelvic Organs: No bladder stones or wall thickening. Noncontrast images of the visualized pelvic organs are unremarkable. Vasculature: Unremarkable. Other: None. IMPRESSION: 1. Minimally obstructing 5 x 3 mm left vesicoureteral junction stone. [facility]
[2018-07-28 12:25] VITALS: BP 132/78
== END 2018-07-28 12:33 | disposition home or self-care (01) ==
LOC: ED 10:12
DX: N20.2 Calculus of kidney with calculus of ureter (principal); R31.29 Other microscopic hematuria
CPT/HCPCS: 74176; 81001; 81003; 81025; 87086; 96361; 96374; 99283; 99284

== ENCOUNTER 2018-08-24 12:50 | Outpatient (CLI) | payer OTHER ==
[2018-08-24 13:11] LABS: MUDS CUTOFF CONCENTRATIONS CUTOFF CONC BELOW:
[2018-08-24 17:46] LABS: BASOPHILS % (AUTO) 0.6 %; EOSINOPHILS % (AUTO) 0.3 %; HGB - HEMOGLOBIN 15.3 g/dL (12.0-16.0); LYMPHOCYTES # (AUTO) 1.8 10^3/uL (1.5-3.5); LYMPHOCYTES % (AUTO) 28.8 %; MEAN CORPUSCULAR HEMOGLOBIN 28.2 pg (27.0-31.0); MEAN CORPUSCULAR HGB CONC 32.7 g/dL (32.0-36.0); MEAN CORPUSCULAR VOLUME 86.3 fL (81.0-99.0); MEAN PLATELET VOLUME 8.4 fL (7.9-10.8); MONOCYTES # (AUTO) 0.2 10^3/uL (0.0-1.0); MONOCYTES % (AUTO) 2.7 %; NEUTROPHILS # (AUTO) 4.3 10^3/uL (1.5-6.6); NEUTROPHILS % (AUTO) 67.6 %; PLT - PLATELET COUNT 287 10^3/uL (130-450); RED BLOOD COUNT 5.42 10^6/uL (4.20-5.40); WHITE BLOOD COUNT 6.4 x10^3/uL (4.8-10.8)
[2018-08-24 17:50] LABS: AMPHETAMINE SCREEN,URINE NEGATIVE (NEGATIVE); BENZODIAZEPINES SCREEN, URINE NEGATIVE (NEGATIVE); COCAINE SCREEN URINE NEGATIVE (NEGATIVE); METHADONE SCREEN, URINE NEGATIVE (NEGATIVE); METHAMPHETAMINES SCREEN, URINE NEGATIVE (NEGATIVE); OPIATE SCREEN, URINE NEGATIVE (NEGATIVE); OXYCODONE SCREEN, URINE NEGATIVE (NEGATIVE); PROPOXYPHENE SCREEN, URINE NEGATIVE (NEGATIVE); TRICYCLIC ANTIDEPRESSANT,URINE NEGATIVE (NEGATIVE)
[2018-08-24 18:00] LABS: ALBUMIN 5.2 g/dL (3.2-5.5); ALBUMIN/GLOBULIN RATIO 1.4 (1.0-2.2); ALKALINE PHOSPHATASE 43 IU/L (42-121); ALT ALANINE AMINOTRANSFERASE 21 IU/L (10-60); AST ASPARTATE AMINOTRANSFERASE 19 IU/L (10-42); BILIRUBIN,TOTAL 0.6 mg/dL (0.2-1.0); BUN - BLOOD UREA NITROGEN 13 mg/dL (6-20); CALCIUM 9.9 mg/dL (8.5-10.3); CARBON DIOXIDE - CO2 28 mmol/L (21-32); CHLORIDE 103 mmol/L (101-111); CREATININE 0.7 mg/dL (0.4-1.0); GFR - MDRD 97 (>89); GLUCOSE 94 mg/dL (70-100); MAGNESIUM 2.1 mg/dL (1.7-2.8); SODIUM 142 mmol/L (135-145); TOTAL PROTEIN 8.9 g/dL (6.7-8.2)
[2018-08-24 18:09] LABS: THYROID STIMULATING HORMONE 2.14 uIU/mL (0.34-5.60)
[2018-08-24 19:11] LABS: CRP - C-REACTIVE PROTEIN < 1.0 mg/dL (0-1.0)
== END 2018-08-24 12:51 | disposition home or self-care (01) ==
LOC: LAB.F 12:50
PROVIDERS: ATTEND Registered Nurse
DX: M79.10 Myalgia, unspecified site (principal)
CPT/HCPCS: 36415; 80053; 80306; 81599; 82306; 82550; 82552; 82607; 82746; 83735; 84443; 85025; 86140